=== PATIENT | male | born 1945 | race Caucasian/White ===

== ENCOUNTER 2019-02-05 08:34 | Outpatient (CLI) | payer OTHER | END 2019-02-05 23:59 | disposition home or self-care (01) | LOC: CVU 08:34 | PROVIDERS: ATTEND Orthopaedic Surgery | DX: I08.8 Other rheumatic multiple valve diseases (principal); I11.9 Hypertensive heart disease without heart failure; I48.91 Unspecified atrial fibrillation; E78.5 Hyperlipidemia, unspecified; I25.2 Old myocardial infarction; Z87.891 Personal history of nicotine dependence; Z85.850 Personal history of malignant neoplasm of thyroid | CPT/HCPCS: 93005; 93306 ==